=== PATIENT | male | born 1940 | race Caucasian/White ===

== ENCOUNTER 2018-03-13 07:30 | Day surgery (SDC) | payer MEDICARE, OTHER ==
[~2018-03-13] VITALS: Ht 180.3 cm; Wt 78.1 kg
[~2018-03-13 07:30] MED LIST: ASPI-1265 PO; CALICUM PO; FISH OIL; GLUCOSAMINE PO; MULT-1066 PO; VIT1TABL91 PO
[2018-03-13 07:58] VITALS: BP 119/95
[2018-03-13] MEDS ORDERED: albumin (human) 25% 100 ML IV solution IV PRN (08:05)
[2018-03-13] MEDS ORDERED: normal saline 1000ml 1,000 ML IV PRN (08:05)
[2018-03-13] MEDS ORDERED: SOTA80TA73 PO (08:07)
[2018-03-13] MEDS ORDERED: PROC10TA10 PO (08:07)
[2018-03-13] MEDS ORDERED: CA C1TAB82 PO (08:07)
[2018-03-13] MEDS ORDERED: LACT1CAP65 PO (08:07)
[2018-03-13] MEDS ORDERED: MULT1TAB74 PO (08:07)
[2018-03-13] MEDS ORDERED: ONDA4TAB12 PO (08:07)
[2018-03-13] MEDS ORDERED: CHOL50004 PO (08:07)
[2018-03-13] MEDS ORDERED: CYAN-19 PO (08:07)
[2018-03-13] MEDS ORDERED: ASCO500C15 PO (08:07)
[2018-03-13] MEDS ORDERED: LIDOcaine 1% 30ml preserv. free vial SQ ONE (08:15)
== END 2018-03-13 09:15 | disposition home or self-care (01) ==
LOC: SSTAY O 07:30
PROVIDERS: ATTEND Radiology Vascular & Interventional Radiology
DX: R18.8 Other ascites (principal); I10 Essential (primary) hypertension; I48.91 Unspecified atrial fibrillation; I49.8 Other specified cardiac arrhythmias; Z90.89 Acquired absence of other organs; Z90.79 Acquired absence of other genital organ(s); Z85.028 Personal history of other malignant neoplasm of stomach; Z90.49 Acquired absence of other specified parts of digestive tract; Z98.890 Other specified postprocedural states; Z79.899 Other long term (current) drug therapy
CPT/HCPCS: 76705; A6257; A6449; J7030; J3490